=== PATIENT | female | born 1950 | race Caucasian/White ===

== ENCOUNTER 2019-01-19 23:02 | Emergency (ER) | payer MEDICARE, OTHER ==
[2019-01-20] MEDS ORDERED: Sodium Chloride 0.9% 1,000 ML IV ONE (00:02)
[2019-01-20] MEDS ORDERED: Ondansetron 4 MG/2 ML SDV IVPUSH ONE (00:02)
[2019-01-20] MEDS ORDERED: Pantoprazole 40 MG Vial IVPUSH ONE (00:02)
[2019-01-20] MEDS ORDERED: Sodium Chloride 0.9% 2.5 ML Syringe FLUSH PRN (00:02)
[2019-01-20] MEDS ORDERED: Sodium Chloride 0.9% 10 ML Syringe FLUSH PRN (00:02)
--- NOTE | 2019-01-20 00:06 | EDM.PDOC ---
ED HPI GENERAL MEDICAL PROBLEM - General Chief Complaint: Abdominal Pain Stated Complaint: STOMACH PAIN Time Seen by Provider: 01/19/19 23:52 - History of Present Illness INITIAL COMMENTS - FREE TEXT/NARRATIVE: HISTORY AND PHYSICAL: History of present illness: The patient is a 68-year-old female with no significant GI history or abdominal surgical history who presents with upper abdominal/epigastric pain that she says she had an episode of yesterday but it went away and then today it came on suddenly and was very severe earlier and now it has persisted but has improved and she is here for evaluation. The patient says the pain was so bad earlier this evening that it doubled her over but she did not come in at that time. She' s had no fevers chest pain or shortness of breath no vomiting but she did have nausea. She says that earlier today she had 2 soft stools both of which were very dark in color but there was no blood. She's not taking anything for this pain including Pepto-Bismol and she does something that she had a similar episode of this upper abdominal pain a year ago and was checked out in ER with some imaging of which she does not recall and everything was fine. She has no history of food intolerance no cardiac or pulmonary history and no upper respiratory symptoms. She has not had a fever in the last 24 hours and she has had normal urine output. She says the pain is now a numb dull feeling that it is not gone completely but it is significantly better than earlier this evening. She says the pain does not spread to the right or the left or to the lower abdomen. Review of systems: As per history of present illness and below otherwise all systems reviewed and negative. Past medical history: As per history of present illness and as reviewed below otherwise noncontributory. Surgical history: As per history of present illness and as reviewed below otherwise noncontributory. Social history: No reported history of drug or alcohol abuse. Family history: As per history of present illness and as reviewed below otherwise noncontributory. Physical exam: General: Well-developed well-nourished female who is nontoxic and vital signs are noted by me HEENT: Atraumatic, normocephalic, pupils reactive, negative for conjunctival pallor or scleral icterus, mucous membranes moist, throat clear, neck supple, nontender, trachea midline. Lungs: Clear to auscultation, breath sounds equal bilaterally, chest nontender. Heart: S1S2, regular rate and rhythm no overt murmurs Abdomen: Soft, nondistended, minimal tenderness on deep palpation epigastrium without rebound or guarding and bowel sounds are hypoactive. Negative for masses or hepatosplenomegaly. Negative for costovertebral tenderness. Pelvis: Stable nontender. Genitourinary: Deferred. Rectal: There is scant dark stool in the vault which is not black or bloody and it is Hemoccult negative. There are no masses and tone is normal Extremities: Atraumatic, negative for cords or calf pain. Neurovascular unremarkable. Neuro: Awake, alert, oriented. Cranial nerves II through XII unremarkable. Cerebellum unremarkable. Motor and sensory unremarkable throughout. Exam nonfocal. Diagnostics: EKG CBC CMP amylase lipase H. pylori UA with reflex CT scan of the abdomen and pelvis Therapeutics: IV fluids Protonix Zofran SHe is aware of testing results and care plan for home. I've advised her to follow-up in our clinic for further evaluation and testing with possible endoscopy and/or HIDA scan. I've advised her to eat a low-fat diet to avoid caffeinated products and reasons to return to the ED Impression: Upper abdominal/epigastric pain etiology unclear stable Definitive disposition and diagnosis as appropriate pending reevaluation and review of above. abdominal area Pain Score (Numeric/FACES): 6 - Related Data Allergies Allergy/AdvReac Type Severity Reaction Status Date / Time Penicillins Allergy Severe Hives Verified 01/19/19 23:32 acetaminophen Allergy Hives Verified 01/19/19 23:32 [From Darvocet-N] Anesthetics - Amide Type Allergy Hives Verified 01/19/19 23:32 Anesthetics - Corry Type- Allergy Hives Verified 01/19/19 23:32 Parabens aspirin Allergy Bleeding Verified 01/19/19 23:32 latex Allergy Hives Verified 01/19/19 23:32 nut - unspecified Allergy Anaphylactic Verified 01/19/19 23:32 Shock propoxyphene Allergy Hives Verified 01/19/19 23:32 [From Darvocet-N] tree nut [[place]ec[place]] Allergy Airway Verified 01/19/19 23:32 Tightness walnut Allergy Airway Verified 01/19/19 23:32 Tightness Home Meds: Home Meds Metoprolol Succinate 100 mg PO DAILY 06/30/17 [History] Ramipril [Altace] 20 mg PO DAILY 06/30/17 [History] Omeprazole 20 mg PO BID 10/10/17 [History] Betamethasone Dipropionate 1 dose TOP ASDIRECTED PRN 11/04/17 [History] Estrogens, Conjugated [Premarin Vaginal Crm] 0.5 mg VAG DAILY 02/11/18 [History] Isosorbide Mononitrate [Isosorbide Mononitrate ER] 30 mg PO DAILY 02/11/18 [ History] Nitroglycerin 0.4 mg PO ASDIRECTED 02/11/18 [History] Past Medical History HEENT History: Reports: Impaired Vision Cardiovascular History: Reports: Hypertension Respiratory History: Reports: None Gastrointestinal History: Reports: Diverticulosis Genitourinary History: Reports: Renal Calculus, Urinary Incontinence Musculoskeletal History: Reports: Arthritis Neurological History: Reports: CVA Psychiatric History: Reports: None Endocrine/Metabolic History: Reports: Other (See Below) Other Endocrine/Metabolic History: 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 and has it controlled with diet Hematologic History: Reports: None - Infectious Disease History Infectious Disease History: Reports: Chicken Pox, Measles - Past Surgical History HEENT Surgical History: Reports: Other (See Below) Female Surgical History: Reports: Hysterectomy, Kidney stone extraction, Lithotripsy/ESWL, Salpingo-Oophorectomy Neurological Surgical History: Reports: Lumbar Spine Musculoskeletal Surgical History: Reports: Other (See Below) Social & Family History - Family History Family Medical History: Noncontributory - Tobacco Use Smoking Status *Q: Never Smoker Second Hand Smoke Exposure: No - Caffeine Use Caffeine Use: Reports: Coffee - Recreational Drug Use Recreational Drug Use: No - Living Situation & Occupation Living situation: Reports: , with Spouse Occupation: Retired ED ROS GENERAL - Review of Systems Review Of Systems: ROS reveals no pertinent complaints other than HPI. ED EXAM, GENERAL - Physical Exam Exam: See Below (See dictation) Course - Vital Signs Last Recorded V/S: Last Vital Signs Temp 36.1 C 01/19/19 23:32 Pulse 72 01/19/19 23:32 Resp 18 01/19/19 23:32 BP 149/91 H 01/19/19 23:32 Pulse Ox 98 01/19/19 23:32 - Orders/Labs/Meds Orders: Active Orders 24 hr Category Date Time Status EKG Documentation Completion [RC] STAT Care 01/20/19 00:01 Active Sodium Chloride 0.9% [Saline Flush] Med 01/20/19 00:02 Active 10 ml FLUSH ASDIRECTED PRN Sodium Chloride 0.9% [Saline Flush] Med 01/20/19 00:02 Active 2.5 ml FLUSH ASDIRECTED PRN Saline Lock Insert [OM.PC] Stat Oth 01/20/19 00:01 Ordered Medication Orders Sodium Chloride (Saline Flush) 10 ml FLUSH ASDIRECTED PRN PRN Reason: Keep Vein Open Sodium Chloride (Saline Flush) 2.5 ml FLUSH ASDIRECTED PRN PRN Reason: Keep Vein Open Labs: Laboratory Tests 01/20/19 01/20/19 01/20/19 Range/Units 00:05 00:05 00:05 WBC 6.56 (4.0-11.0) K/uL RBC 4.45 (4.30-5.90) M/uL Hgb 14.0 (12.0-16.0) g/dL Hct 40.4 (36.0-46.0) % MCV 90.8 (80.0-98.0) fL MCH 31.5 (27.0-32.0) pg MCHC 34.7 (31.0-37.0) g/dL RDW Std Deviation 43.3 (28.0-62.0) fl RDW Coeff of Malissa 13 (11.0-15.0) % Plt Count 271 (150-400) K/uL MPV 11.30 (7.40-12.00) fL Neut % (Auto) 50.7 (48.0-80.0) % Lymph % (Auto) 36.0 (16.0-40.0) % [place] % (Auto) 11.3 (0.0-15.0) % Eos % (Auto) 1.5 (0.0-7.0) % Baso % (Auto) 0.5 (0.0-1.5) % Neut # (Auto) 3.3 (1.4-5.7) K/uL Lymph # (Auto) 2.4 (0.6-2.4) K/uL [place] # (Auto) 0.7 (0.0-0.8) K/uL Eos # (Auto) 0.1 (0.0-0.7) K/uL Baso # (Auto) 0.0 (0.0-0.1) K/uL Nucleated RBC % 0.0 /100WBC Nucleated RBCs # 0 K/uL Sodium 144 (136-145) mmol/L Potassium 3.8 (3.5-5.1) mmol/L Chloride 108 H (98-107) mmol/L Carbon Dioxide 27.0 (21.0-32.0) mmol/L BUN 14 (7.0-18.0) mg/dL Creatinine 0.9 (0.6-1.0) mg/dL Est Cr Clr Drug Dosing 44.17 mL/min Estimated GFR (MDRD) > 60.0 ml/min Glucose 104 (74-106) mg/dL Calcium 8.6 (8.5-10.1) mg/dL Total Bilirubin 0.4 (0.2-1.0) mg/dL AST 22 (15-37) IU/L ALT 29 (14-63) IU/L Alkaline Phosphatase 118 H (46-116) U/L Total Protein 6.9 (6.4-8.2) g/dL Albumin 3.8 (3.4-5.0) g/dL Globulin 3.1 (2.6-4.0) g/dL Albumin/Globulin Ratio 1.2 (0.9-1.6) Amylase 58 (25-115) U/L Lipase 172 (73-393) U/L Urine Color Urine Appearance Urine pH (5.0-8.0) Ur Specific [place] (1.001-1.035) Urine Protein (NEGATIVE) mg/dL Urine Glucose (UA) (NEGATIVE) mg/dL Urine Ketones (NEGATIVE) mg/dL Urine Occult Blood (NEGATIVE) Urine Nitrite (NEGATIVE) Urine Bilirubin (NEGATIVE) Urine Urobilinogen (<2.0) EU/dL Ur Leukocyte Esterase (NEGATIVE) Urine RBC (0-2/HPF) Urine WBC (0-5/HPF) Ur Epithelial Cells (NONE-FEW) Urine Bacteria (NEGATIVE) H. pylori IgG Antibody NEGATIVE (NEG) 01/20/19 Range/Units 01:15 WBC (4.0-11.0) K/uL RBC (4.30-5.90) M/uL Hgb (12.0-16.0) g/dL Hct (36.0-46.0) % MCV (80.0-98.0) fL MCH (27.0-32.0) pg MCHC (31.0-37.0) g/dL RDW Std Deviation (28.0-62.0) fl RDW Coeff of [place]issa (11.0-15.0) % Plt Count (150-400) K/uL MPV (7.40-12.00) fL Neut % (Auto) (48.0-80.0) % Lymph % (Auto) (16.0-40.0) % [place] % (Auto) (0.0-15.0) % Eos % (Auto) (0.0-7.0) % Baso % (Auto) (0.0-1.5) % Neut # (Auto) (1.4-5.7) K/uL Lymph # (Auto) (0.6-2.4) K/uL [place] # (Auto) (0.0-0.8) K/uL Eos # (Auto) (0.0-0.7) K/uL Baso # (Auto) (0.0-0.1) K/uL Nucleated RBC % /100WBC Nucleated RBCs # K/uL Sodium (136-145) mmol/L Potassium (3.5-5.1) mmol/L Chloride (98-107) mmol/L Carbon Dioxide (21.0-32.0) mmol/L BUN (7.0-18.0) mg/dL Creatinine (0.6-1.0) mg/dL Est Cr Clr Drug Dosing mL/min Estimated GFR (MDRD) ml/min Glucose (74-106) mg/dL Calcium (8.5-10.1) mg/dL Total Bilirubin (0.2-1.0) mg/dL AST (15-37) IU/L ALT (14-63) IU/L Alkaline Phosphatase (46-116) U/L Total Protein (6.4-8.2) g/dL Albumin (3.4-5.0) g/dL Globulin (2.6-4.0) g/dL Albumin/Globulin Ratio (0.9-1.6) Amylase (25-115) U/L Lipase (73-393) U/L Urine Color YELLOW Urine Appearance CLEAR Urine pH 5.5 (5.0-8.0) Ur Specific [place] <= 1.005 (1.001-1.035) Urine Protein NEGATIVE (NEGATIVE) mg/dL Urine Glucose (UA) NEGATIVE (NEGATIVE) mg/dL Urine Ketones NEGATIVE (NEGATIVE) mg/dL Urine Occult Blood TRACE-INTACT H (NEGATIVE) Urine Nitrite NEGATIVE (NEGATIVE) Urine Bilirubin NEGATIVE (NEGATIVE) Urine Urobilinogen 0.2 (<2.0) EU/dL Ur Leukocyte Esterase NEGATIVE (NEGATIVE) Urine RBC 0-2 (0-2/HPF) Urine WBC 0-1 (0-5/HPF) Ur Epithelial Cells FEW (NONE-FEW) Urine Bacteria FEW (NEGATIVE) H. pylori IgG Antibody (NEG) Meds: Medications Generic Name Dose Route Start Last Admin Trade Name Freq PRN Reason Stop Dose Admin Sodium Chloride 10 ml 01/20/19 00:02 Saline Flush FLUSH ASDIRECTED PRN Keep Vein Open Sodium Chloride 2.5 ml 01/20/19 00:02 Saline Flush FLUSH ASDIRECTED PRN Keep Vein Open Discontinued Medications Generic Name Dose Route Start Last Admin Trade Name Freq PRN Reason Stop Dose Admin Sodium Chloride 1,000 mls @ 999 mls/hr 01/20/19 00:02 01/20/19 00:15 Normal Saline IV 01/20/19 01:02 999 mls/hr STAT ONE Administration Iopamidol 100 ml 01/20/19 01:05 01/20/19 01:26 Isovue-370 (76%) IVPUSH 01/20/19 01:06 100 ml ONETIME ONE Administration Ondansetron HCl 4 mg 01/20/19 00:02 01/20/19 00:15 Zofran IVPUSH 01/20/19 00:03 4 mg ONETIME ONE Administration Pantoprazole Sodium 80 mg 01/20/19 00:02 01/20/19 00:15 Protonix Iv IVPUSH 01/20/19 00:03 80 mg .BOLUS ONE Administration Departure - Departure Time of Disposition: 02:20 Disposition: Home, Self-Care 01 Condition: Good Clinical Impression: Abdominal pain Qualifiers: Abdominal location: epigastric Qualified Code(s): R10.13 - Epigastric pain - Discharge Information Referrals: PCP,None [Primary Care Provider] - Forms: ED Department Discharge Additional Instructions: The following information is given to patients seen in the emergency department who are being discharged to home. This information is to outline your options for follow-up care. We provide all patients seen in our emergency department with a follow-up referral. The need for follow-up, as well as the timing and circumstances, are variable depending upon the specifics of your emergency department visit. If you don't have a primary care physician on staff, we will provide you with a referral. We always advise you to contact your personal physician following an emergency department visit to inform them of the circumstance of the visit and for follow-up with them and/or the need for any referrals to a consulting specialist. The emergency department will also refer you to a specialist when appropriate. This referral assures that you have the opportunity for followup care with a specialist. All of these measure are taken in an effort to provide you with optimal care, which includes your followup. Under all circumstances we always encourage you to contact your private physician who remains a resource for coordinating your care. When calling for followup care, please make the office aware that this follow-up is from your recent emergency room visit. If for any reason you are refused follow-up, please contact the [facility] emergency department at and ask to speak to the emergency department charge nurse. [facility] Specialty Care-General Surgery Professional [address] [address] Please contact one of our providers in the clinic to pursue further testing and care of this episode of pain as we discussed. Push hydration and avoid caffeinated products and eat a low-fat diet. Please take medications as prescribed to this evening to reduce acid production in her stomach and return to ER as needed and as discussed - My Orders Last 24 Hours: My Active Orders 01/20/19 00:01 EKG Documentation Completion [RC] STAT Saline Lock Insert [OM.PC] Stat 01/20/19 00:02 Sodium Chloride 0.9% [Saline Flush] 10 ml FLUSH ASDIRECTED PRN Sodium Chloride 0.9% [Saline Flush] 2.5 ml FLUSH ASDIRECTED PRN - Assessment/Plan Last 24 Hours: My Active Orders 01/20/19 00:01 EKG Documentation Completion [RC] STAT Saline Lock Insert [OM.PC] Stat 01/20/19 00:02 Sodium Chloride 0.9% [Saline Flush] 10 ml FLUSH ASDIRECTED PRN Sodium Chloride 0.9% [Saline Flush] 2.5 ml FLUSH ASDIRECTED PRN
[2019-01-20 00:42] LABS: CHLORIDE,CL 108 mmol/L (98-107); SODIUM,NA 144 mmol/L (136-145)
[2019-01-20] MEDS ORDERED: Iopamidol 755 Mg/ML 100 ML Bottle IVPUSH ONE (01:05)
--- NOTE | 2019-01-20 02:01 | CT ---
INDICATION: Abdominal pain TECHNIQUE: CT abdomen and pelvis acquired with 100 cc Isovue 370 intravenous contrast. COMPARISON: None. FINDINGS: Lower chest: Calcified granuloma right lower lobe. Liver: Normal in contour with 2 subcentimeter hyperdensities which are too small for characterization. Gallbladder and bile ducts: Unremarkable. No stones or inflammation. No biliary dilatation. Pancreas: Unremarkable. No mass or inflammation. Spleen: Unremarkable. Normal in size. No masses. Adrenal glands: Unremarkable. No nodules. Kidneys: Symmetric renal enhancement without hydronephrosis. Subcentimeter hypodensities within the kidneys which are too small for characterization although visually likely represent renal cysts. GI tract: The stomach is decompressed and unremarkable. There are no dilated loops of large or small intestine. Appendix is seen and is unremarkable. Note is made of colonic diverticulosis without focal inflammation. Moderate amount of stool within the colon. Vasculature: Atherosclerosis without abdominal aortic aneurysm. Pelvis: Bladder unremarkable. Status posthysterectomy. Bones: Unremarkable for age. IMPRESSION: 1. Colonic diverticulosis without baylee diverticulitis. No acute findings to explain the patient`s abdominal pain. Please note that all CT scans at this facility use dose modulation, iterative reconstruction, and/or weight-based dosing when appropriate to reduce radiation dose to as low as reasonably achievable. Dictated by Tomás Martinez MD @ Jan 20 2019 1:51AM Signed by Dr. Tomás Martinez @ Jan 20 2019 2:00AM
[2019-01-20 03:23] VITALS: BP 128/80
== END 2019-01-20 02:35 | disposition home or self-care (01) ==
LOC: MW.ED 23:02
DX: R10.13 Epigastric pain (principal); I10 Essential (primary) hypertension; Z91.040 Latex allergy status; Z88.0 Allergy status to penicillin; Z88.8 Allergy status to other drugs, medicaments and biological substances
CPT/HCPCS: 36415; 74177; 80053; 81001; 82150; 83690; 85025; 86677; 93005; 96361; 96374; 96375; 99284; C9113; J2405; J7040; Q9967

== ENCOUNTER 2019-03-30 16:17 | Observation (INO) | payer MEDICARE, OTHER ==
[2019-03-30] MEDS ORDERED: Sodium Chloride 0.9% 10 ML Syringe FLUSH PRN (16:22)
[2019-03-30] MEDS ORDERED: Sodium Chloride 0.9% 2.5 ML Syringe FLUSH PRN (16:22)
[2019-03-30] MEDS ORDERED: Sodium Chloride 0.9% 10 ML SDV IV PRN (16:22)
--- NOTE | 2019-03-30 16:42 | CT ---
INDICATION: pain in head and right leg. Patient states history of stroke in 2007 TECHNIQUE: CT Head without i.v. contrast. COMPARISON: None FINDINGS: CSF space: Unremarkable for age. Brain: No evidence of mass, acute infarction or hemorrhage is seen. No mass-effect or midline shift is seen. Mild diffuse cortical atrophy is noted. The brain parenchyma is otherwise normal in appearance with preservation of the sheets-white matter junction. Calvarium: The visualized paranasal sinuses are well aerated. The mastoid air cells are clear. The visualized orbits are grossly unremarkable. The calvarium is unremarkable in appearance with no fractures identified. IMPRESSION: 1. No evidence of acute infarction, intracranial hemorrhage, or mass-effect seen. The findings were discussed with Dr. Gardiner at 4:40 PM. Please note that all CT scans at this facility use dose modulation, iterative reconstruction, and/or weight-based dosing when appropriate to reduce radiation dose to as low as reasonably achievable. Dictated by: Sigifredo Looney MD @ 03/30/2019 16:41:05 (Electronically Signed)
--- NOTE | 2019-03-30 16:48 | EDM.PDOC ---
ED HPI GENERAL MEDICAL PROBLEM - General Chief Complaint: Neuro Symptoms/Deficits Stated Complaint: UNK Time Seen by Provider: 03/30/19 16:19 Source of Information: Reports: Patient History Limitations: Reports: No Limitations - History of Present Illness INITIAL COMMENTS - FREE TEXT/NARRATIVE: History of present illness: []She has had a history of a stroke in 2006 and today approximately 2 hours ago started having numbness in her right cheek. She denies any other Deficits or symptoms. 2 days ago patient had a varicose vein rupture and simultaneous neck pain posteriorly right neck that worsened with movement. She is scared that she may have had another stroke. Review of systems: As per history of present illness and below otherwise all systems reviewed and negative. Past medical history: As per history of present illness and as reviewed below otherwise noncontributory. Surgical history: As per history of present illness and as reviewed below otherwise noncontributory. Social history: No reported history of drug or alcohol abuse. Family history: As per history of present illness and as reviewed below otherwise noncontributory. Physical exam: General: Well developed, well nourished in NAD HEENT: Atraumatic, normocephalic, pupils reactive, negative for conjunctival pallor or scleral icterus, mucous membranes moist, throat clear, neck supple, nontender, trachea midline. Lungs: Clear to auscultation, breath sounds equal bilaterally, chest nontender. Heart: S1S2, regular, negative for clicks, rubs, or JVD. Abdomen: NABS, Soft, nondistended, nontender. Negative for masses or hepatosplenomegaly. Negative for costovertebral tenderness. Pelvis: Stable nontender. Genitourinary: Deferred. Rectal: Deferred. Extremities: Atraumatic, negative for cords or calf pain. Neurovascular unremarkable. Neuro: Awake, alert, oriented. Cranial nerves II through XII unremarkable. Cerebellum unremarkable. Motor and sensory unremarkable throughout. Exam nonfocal. Skin:warm and dry Diagnostics: 14:45-CT head negative, stroke protocol workup ordered, and NIH= 0 Therapeutics: None ED Course: stable Impression: TIA Prescriptions: None Plan: Admit for further workup and observation Definitive disposition and diagnosis as appropriate pending reevaluation and review of above. headache Pain Score (Numeric/FACES): 5 - Related Data Allergies Allergy/AdvReac Type Severity Reaction Status Date / Time Penicillins Allergy Severe Hives Verified 03/30/19 16:45 acetaminophen Allergy Hives Verified 03/30/19 16:45 [From Darvocet-N] Anesthetics - Amide Type Allergy Hives Verified 03/30/19 16:45 Anesthetics - [place]ry Type- Allergy Hives Verified 03/30/19 16:45 Parabens aspirin Allergy Bleeding Verified 03/30/19 16:45 latex Allergy Hives Verified 03/30/19 16:45 nut - unspecified Allergy Anaphylactic Verified 03/30/19 16:45 Shock propoxyphene Allergy Hives Verified 03/30/19 16:45 [From Darvocet-N] tree nut [[place]ec[place]] Allergy Airway Verified 03/30/19 16:45 Tightness walnut Allergy Airway Verified 03/30/19 16:45 Tightness Home Meds: Home Meds Metoprolol Succinate 100 mg PO DAILY 06/30/17 [History] Ramipril [Altace] 20 mg PO DAILY 06/30/17 [History] Estrogens, Conjugated [Premarin Vaginal Crm] 0.5 mg VAG DAILY 02/11/18 [History] Isosorbide Mononitrate [Isosorbide Mononitrate ER] 30 mg PO DAILY 02/11/18 [ History] Nitroglycerin 0.4 mg PO ASDIRECTED 02/11/18 [History] Past Medical History HEENT History: Reports: Impaired Vision Cardiovascular History: Reports: Hypertension Respiratory History: Reports: None Gastrointestinal History: Reports: Diverticulosis Genitourinary History: Reports: Renal Calculus, Urinary Incontinence Musculoskeletal History: Reports: Arthritis Neurological History: Reports: CVA Psychiatric History: Reports: None Endocrine/Metabolic History: Reports: Other (See Below) Other Endocrine/Metabolic History: 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 and has it controlled with diet Hematologic History: Reports: None - Infectious Disease History Infectious Disease History: Reports: Chicken Pox, Measles - Past Surgical History HEENT Surgical History: Reports: Other (See Below) Female Surgical History: Reports: Hysterectomy, Kidney stone extraction, Lithotripsy/ESWL, Salpingo-Oophorectomy Neurological Surgical History: Reports: Lumbar Spine Musculoskeletal Surgical History: Reports: Other (See Below) Social & Family History - Family History Family Medical History: Noncontributory - Caffeine Use Caffeine Use: Reports: Coffee - Living Situation & Occupation Living situation: Reports: , with Spouse Occupation: Retired ED ROS GENERAL - Review of Systems Review Of Systems: ROS reveals no pertinent complaints other than HPI. ED EXAM, NEURO - Physical Exam Exam: See Below (See history of present illness) Course - Vital Signs Last Recorded V/S: Last Vital Signs Temp 96.5 F 03/31/19 04:00 Pulse 71 03/31/19 04:00 Resp 16 03/31/19 04:00 BP 134/77 03/31/19 04:00 Pulse Ox 97 03/31/19 04:00 - Orders/Labs/Meds Orders: Active Orders 24 hr Category Date Time Status Patient Status [ADT] Stat ADT 03/30/19 17:10 Active Assess Neurological Status [RC] Q4H Care 03/30/19 16:22 Active Bedrest [RC] ASDIRECTED Care 03/30/19 16:22 Active Cardiac Monitoring [RC] Q8HPRN Care 03/30/19 18:00 Active NIH Stroke Scale [RC] Q4H Care 03/30/19 16:22 Active Nursing Bedside Swallow Screen [RC] ASDIRECTED Care 03/30/19 16:22 Active Oxygen Therapy [RC] ASDIRECTED Care 03/30/19 16:22 Active Stroke Education, General [RC] Click to Edit Care 03/30/19 16:22 Active Vital Signs [RC] Q4H Care 03/30/19 16:22 Active Sodium Chloride 0.9% [Normal Saline] Med 03/30/19 16:22 Active 10 ml IV ASDIRECTED PRN Sodium Chloride 0.9% [Saline Flush] Med 03/30/19 16:22 Active 10 ml FLUSH ASDIRECTED PRN Sodium Chloride 0.9% [Saline Flush] Med 03/30/19 16:22 Active 2.5 ml FLUSH ASDIRECTED PRN Peripheral IV Insertion Adult [OM.PC] Stat Oth 03/30/19 16:22 Ordered Peripheral IV Insertion Adult [OM.PC] Stat Oth 03/30/19 16:22 Ordered Medication Orders Acetaminophen (Tylenol) 650 mg PO Q4H PRN PRN Reason: Pain (Mild 1-3)/fever Enoxaparin Sodium (Lovenox) 40 mg SUBCUT Q24H MIKE Last Admin: 03/30/19 18:21 Dose: 40 mg Isosorbide Mononitrate (Imdur) 30 mg PO DAILY [facility] Metoprolol Succinate (Toprol Xl) 100 mg PO DAILY [facility] Nitroglycerin (Nitrostat) 0.4 mg SL Q5M PRN PRN Reason: Chest Pain Ondansetron HCl (Zofran Odt) 4 mg PO Q4H PRN PRN Reason: nausea, able to take PO Ramipril (Altace) 20 mg PO DAILY MIKE Sodium Chloride (Saline Flush) 10 ml FLUSH ASDIRECTED PRN PRN Reason: Keep Vein Open Sodium Chloride (Saline Flush) 2.5 ml FLUSH ASDIRECTED PRN PRN Reason: Keep Vein Open Sodium Chloride (Normal Saline) 10 ml IV ASDIRECTED PRN PRN Reason: IV Use Labs: Laboratory Tests 03/30/19 03/30/19 03/30/19 Range/Units 16:45 16:45 16:45 WBC 6.05 (4.0-11.0) K/uL RBC 4.56 (4.30-5.90) M/uL Hgb 14.4 (12.0-16.0) g/dL Hct 42.4 (36.0-46.0) % MCV 93.0 (80.0-98.0) fL MCH 31.6 (27.0-32.0) pg MCHC 34.0 (31.0-37.0) g/dL RDW Std Deviation 45.0 (28.0-62.0) fl RDW Coeff of Malissa 13 (11.0-15.0) % Plt Count 231 (150-400) K/uL MPV 11.00 (7.40-12.00) fL Neut % (Auto) 73.4 (48.0-80.0) % Lymph % (Auto) 18.3 (16.0-40.0) % [place] % (Auto) 7.3 (0.0-15.0) % Eos % (Auto) 0.7 (0.0-7.0) % Baso % (Auto) 0.3 (0.0-1.5) % Neut # (Auto) 4.4 (1.4-5.7) K/uL Lymph # (Auto) 1.1 (0.6-2.4) K/uL [place] # (Auto) 0.4 (0.0-0.8) K/uL Eos # (Auto) 0.0 (0.0-0.7) K/uL Baso # (Auto) 0.0 (0.0-0.1) K/uL Nucleated RBC % 0.0 /100WBC Nucleated RBCs # 0 K/uL INR 0.96 APTT 24.9 (18.6-31.3) SEC Sodium 141 (136-145) mmol/L Potassium 3.8 (3.5-5.1) mmol/L Chloride 105 (98-107) mmol/L Carbon Dioxide 25.6 (21.0-32.0) mmol/L BUN 17 (7.0-18.0) mg/dL Creatinine 0.9 (0.6-1.0) mg/dL Est Cr Clr Drug Dosing 50.18 mL/min Estimated GFR (MDRD) > 60.0 ml/min Glucose 134 H (74-106) mg/dL Calcium 9.1 (8.5-10.1) mg/dL Total Bilirubin 0.6 (0.2-1.0) mg/dL AST 12 L (15-37) IU/L ALT 21 (14-63) IU/L Alkaline Phosphatase 97 (46-116) U/L Troponin I < 0.050 (0.000-0.056) ng/mL Total Protein 6.9 (6.4-8.2) g/dL Albumin 3.8 (3.4-5.0) g/dL Globulin 3.1 (2.6-4.0) g/dL Albumin/Globulin Ratio 1.2 (0.9-1.6) TSH 3rd Generation 1.51 (0.36-3.74) uIU/mL Meds: Medications Generic Name Dose Route Start Last Admin Trade Name Freq PRN Reason Stop Dose Admin Acetaminophen 650 mg 03/30/19 17:46 Tylenol PO Q4H PRN Pain (Mild 1-3)/fever Enoxaparin Sodium 40 mg 03/30/19 18:00 03/30/19 18:21 Lovenox SUBCUT 40 mg Q24H MIKE Administration Isosorbide Mononitrate 30 mg 03/31/19 09:00 Imdur PO DAILY [facility] Metoprolol Succinate 100 mg 03/31/19 09:00 Toprol Xl PO DAILY MIKE Nitroglycerin 0.4 mg 03/30/19 17:54 Nitrostat SL Q5M PRN Chest Pain Ondansetron HCl 4 mg 03/30/19 17:46 Zofran Odt PO Q4H PRN nausea, able to take PO Ramipril 20 mg 03/31/19 09:00 Altace PO DAILY MIKE Sodium Chloride 10 ml 03/30/19 16:22 Saline Flush FLUSH ASDIRECTED PRN Keep Vein Open Sodium Chloride 2.5 ml 03/30/19 16:22 Saline Flush FLUSH ASDIRECTED PRN Keep Vein Open Sodium Chloride 10 ml 03/30/19 16:22 Normal Saline IV ASDIRECTED PRN IV Use Discontinued Medications Generic Name Dose Route Start Last Admin Trade Name Freq PRN Reason Stop Dose Admin Iopamidol 100 ml 03/30/19 19:26 03/30/19 19:26 Isovue Multipack-370 (76%) IVPUSH 03/30/19 19:27 100 ml ONETIME STA Administration Departure - Departure Time of Disposition: 17:50 Disposition: Admitted As Inpatient 68 Condition: Good Clinical Impression: TIA (transient ischemic attack) - Discharge Information *PRESCRIPTION DRUG MONITORING PROGRAM REVIEWED*: No *COPY OF PRESCRIPTION DRUG MONITORING REPORT IN PATIENT BELKYS: No - My Orders Last 24 Hours: My Active Orders 03/30/19 16:22 Assess Neurological Status [RC] Q4H Bedrest [RC] ASDIRECTED NIH Stroke Scale [RC] Q4H Nursing Bedside Swallow Screen [RC] ASDIRECTED Oxygen Therapy [RC] ASDIRECTED Stroke Education, General [RC] Click to Edit Vital Signs [RC] Q4H Sodium Chloride 0.9% [Normal Saline] 10 ml IV ASDIRECTED PRN Sodium Chloride 0.9% [Saline Flush] 10 ml FLUSH ASDIRECTED PRN Sodium Chloride 0.9% [Saline Flush] 2.5 ml FLUSH ASDIRECTED PRN Peripheral IV Insertion Adult [OM.PC] Stat Peripheral IV Insertion Adult [OM.PC] Stat 03/30/19 17:10 Patient Status [ADT] Stat 03/30/19 18:00 Cardiac Monitoring [RC] Q8HPRN - Assessment/Plan Last 24 Hours: My Active Orders 03/30/19 16:22 Assess Neurological Status [RC] Q4H Bedrest [RC] ASDIRECTED NIH Stroke Scale [RC] Q4H Nursing Bedside Swallow Screen [RC] ASDIRECTED Oxygen Therapy [RC] ASDIRECTED Stroke Education, General [RC] Click to Edit Vital Signs [RC] Q4H Sodium Chloride 0.9% [Normal Saline] 10 ml IV ASDIRECTED PRN Sodium Chloride 0.9% [Saline Flush] 10 ml FLUSH ASDIRECTED PRN Sodium Chloride 0.9% [Saline Flush] 2.5 ml FLUSH ASDIRECTED PRN Peripheral IV Insertion Adult [OM.PC] Stat Peripheral IV Insertion Adult [OM.PC] Stat 03/30/19 17:10 Patient Status [ADT] Stat 03/30/19 18:00 Cardiac Monitoring [RC] Q8HPRN
[2019-03-30 17:31] LABS: CHLORIDE,CL 105 mmol/L (98-107); SODIUM,NA 141 mmol/L (136-145)
[2019-03-30] MEDS ORDERED: Acetaminophen 325 MG Tab PO PRN (17:46)
[2019-03-30] MEDS ORDERED: Ondansetron 4 MG Tab.DIS PO PRN (17:46)
[2019-03-30] MEDS ORDERED: Nitroglycerin 0.4 MG Tab.SL SL PRN (17:54)
[2019-03-30] MEDS ORDERED: Enoxaparin 40 MG/0.4 ML Syringe SUBCUT SCH (18:00)
--- NOTE | 2019-03-30 18:04 | PCM.HP ---
<Jorden Smith - Last Filed: 03/30/19 17:58> H&P History of Present Illness - General Date of Service: 03/30/19 Admit Problem/Dx: Admission Diagnosis/Problem Admission Diagnosis/Problem TIA, Transient ischemic attack - History of Present Illness Initial Comments - Free Text/Narative: 69 y/o female with previous history of stroke and TIA. Last stroke was in 2006 and last TIA was few years ago. States that for the past 2-3 days she has been having a headache in occipital, cervical region. No radiation. Tender when palpated. Massaging it helps. Has been taking tylenol with minimal improvement. She was concern today since she started feeling some right maxillary numbness along with the occipital headache which she described as sharp feeling. She notes that she has chronic sinusitis and doesn't know if it was her sinus pressure causing the symptoms, never the less, she contacted her PCP's office who advised her to go to the ER due to her symptoms and past history of strokes. In the ER, she was in no acute distress. Still endorsed tenderness in the cervical neck region when turning neck to the right. Endorsed some sinus pressure. No extremity numbness or loss of strength. Denied any slurring of her speech or difficulty walking. CT head was negative for any intracranial hemorrhage or acute stroke findings. Denies any change in vision, cough, chest pain, dyspnea, abdominal pain, dysuria , diarrhea, blood in stool. No extremity swelling. headache Pain Score (Numeric/FACES): 5 - Related Data Allergies/Adverse Reactions: Allergies Allergy/AdvReac Type Severity Reaction Status Date / Time Penicillins Allergy Severe Hives Verified 03/30/19 16:45 acetaminophen Allergy Hives Verified 03/30/19 16:45 [From Darvocet-N] Anesthetics - Amide Type Allergy Hives Verified 03/30/19 16:45 Anesthetics - Corry Type- Allergy Hives Verified 03/30/19 16:45 Parabens aspirin Allergy Bleeding Verified 03/30/19 16:45 latex Allergy Hives Verified 03/30/19 16:45 nut - unspecified Allergy Anaphylactic Verified 03/30/19 16:45 Shock propoxyphene Allergy Hives Verified 03/30/19 16:45 [From Darvocet-N] tree nut [[place]ecans] Allergy Airway Verified 03/30/19 16:45 Tightness walnut Allergy Airway Verified 03/30/19 16:45 Tightness Home Medications: Home Meds Metoprolol Succinate 100 mg PO DAILY 06/30/17 [History] Ramipril [Altace] 20 mg PO DAILY 06/30/17 [History] Estrogens, Conjugated [Premarin Vaginal Crm] 0.5 mg VAG DAILY 02/11/18 [History] Isosorbide Mononitrate [Isosorbide Mononitrate ER] 30 mg PO DAILY 02/11/18 [ History] Nitroglycerin 0.4 mg PO ASDIRECTED 02/11/18 [History] Past Medical History HEENT History: Reports: Impaired Vision Cardiovascular History: Reports: Hypertension Respiratory History: Reports: None Gastrointestinal History: Reports: Diverticulosis Genitourinary History: Reports: Renal Calculus, Urinary Incontinence ORTHOPEDIC NURSE PRACTITIONER History: Reports: None Musculoskeletal History: Reports: Arthritis Neurological History: Reports: CVA Psychiatric History: Reports: None Endocrine/Metabolic History: Reports: Other (See Below) Other Endocrine/Metabolic History: 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 and has it controlled with diet Hematologic History: Reports: None Immunologic History: Reports: None Oncologic (Cancer) History: Reports: None Dermatologic History: Reports: None - Infectious Disease History Infectious Disease History: Reports: Chicken Pox, Measles - Past Surgical History HEENT Surgical History: Reports: Other (See Below) Female Surgical History: Reports: Hysterectomy, Kidney stone extraction, Lithotripsy/ESWL, Salpingo-Oophorectomy Neurological Surgical History: Reports: Lumbar Spine Musculoskeletal Surgical History: Reports: Other (See Below) Social & Family History - Family History Family Medical History: Noncontributory - Tobacco Use Smoking Status *Q: Former Smoker Used Tobacco, but Quit: Yes Month/Year Tobacco Last Used: 43 years - Caffeine Use Caffeine Use: Reports: Coffee - Recreational Drug Use Recreational Drug Use: No - Living Situation & Occupation Living situation: Reports: , with Spouse Occupation: Retired H&P Review of Systems - Review of Systems: Review Of Systems: ROS reveals no pertinent complaints other than HPI. Exam - Exam Exam: See Below - Vital Signs Vital Signs: Last Vital Signs Temp 36.6 C 03/30/19 16:25 Pulse 65 03/30/19 17:23 Resp 18 03/30/19 17:23 BP 153/93 H 03/30/19 17:23 Pulse Ox 98 03/30/19 17:23 Weight: 63.503 kg - Exam General: Alert, Oriented, Cooperative HEENT: Conjunctiva Clear, Mucosa Moist & [place] Neck: Supple, Full Range of Motion, Other (point tenderness on right cervical, occipital area.) Lungs: Clear to Auscultation, Normal Respiratory Effort. No: Crackles, Wheezing Cardiovascular: Regular Rate, Regular Rhythm GI/Abdominal Exam: Normal Bowel Sounds, Soft, Non-Tender, No Organomegaly, No Distention Back Exam: Normal Inspection, Full Range of Motion Extremities: Normal Inspection, No Pedal Edema Skin: Warm, Dry Neurological: Cranial Nerves Intact, Strength Equal Bilateral, Normal Gait, Normal Speech Neuro Extensive - Mental Status: Alert, Oriented x3 - Patient Data Lab Results Last 24 hrs: Laboratory Results - last 24 hr 03/30/19 03/30/19 03/30/19 Range/Units 16:45 16:45 16:45 WBC 6.05 (4.0-11.0) K/uL RBC 4.56 (4.30-5.90) M/uL Hgb 14.4 (12.0-16.0) g/dL Hct 42.4 (36.0-46.0) % MCV 93.0 (80.0-98.0) fL MCH 31.6 (27.0-32.0) pg MCHC 34.0 (31.0-37.0) g/dL RDW Std Deviation 45.0 (28.0-62.0) fl RDW Coeff of Malissa 13 (11.0-15.0) % Plt Count 231 (150-400) K/uL MPV 11.00 (7.40-12.00) fL Neut % (Auto) 73.4 (48.0-80.0) % Lymph % (Auto) 18.3 (16.0-40.0) % [place] % (Auto) 7.3 (0.0-15.0) % Eos % (Auto) 0.7 (0.0-7.0) % Baso % (Auto) 0.3 (0.0-1.5) % Neut # (Auto) 4.4 (1.4-5.7) K/uL Lymph # (Auto) 1.1 (0.6-2.4) K/uL [place] # (Auto) 0.4 (0.0-0.8) K/uL Eos # (Auto) 0.0 (0.0-0.7) K/uL Baso # (Auto) 0.0 (0.0-0.1) K/uL Nucleated RBC % 0.0 /100WBC Nucleated RBCs # 0 K/uL INR 0.96 APTT 24.9 (18.6-31.3) SEC Sodium 141 (136-145) mmol/L Potassium 3.8 (3.5-5.1) mmol/L Chloride 105 (98-107) mmol/L Carbon Dioxide 25.6 (21.0-32.0) mmol/L BUN 17 (7.0-18.0) mg/dL Creatinine 0.9 (0.6-1.0) mg/dL Est Cr Clr Drug Dosing 50.18 mL/min Estimated GFR (MDRD) > 60.0 ml/min Glucose 134 H (74-106) mg/dL Calcium 9.1 (8.5-10.1) mg/dL Total Bilirubin 0.6 (0.2-1.0) mg/dL AST 12 L (15-37) IU/L ALT 21 (14-63) IU/L Alkaline Phosphatase 97 (46-116) U/L Troponin I < 0.050 (0.000-0.056) ng/mL Total Protein 6.9 (6.4-8.2) g/dL Albumin 3.8 (3.4-5.0) g/dL Globulin 3.1 (2.6-4.0) g/dL Albumin/Globulin Ratio 1.2 (0.9-1.6) TSH 3rd Generation 1.51 (0.36-3.74) uIU/mL Result Diagrams: 03/30/19 16:45 03/30/19 16:45 Problem List Initiated/Reviewed/Updated: Yes Orders Last 24hrs: Active Orders 24 hr Category Date Time Status Patient Status [ADT] Stat ADT 03/30/19 17:10 Active Assess Neurological Status [RC] ASDIRECTED Care 03/30/19 16:22 Active Bedrest Bathroom Privileges [RC] ASDIRECTED Care 03/30/19 17:46 Active Bedrest [RC] ASDIRECTED Care 03/30/19 16:22 Active Cardiac Monitoring [RC] . DIRECTED Care 03/30/19 16:22 Active EKG Documentation Completion [RC] STAT Care 03/30/19 16:22 Active Height and Weight [RC] UPON Care 03/30/19 16:22 Active Initiate Acute Stroke Protocol [RC] STAT Care 03/30/19 16:22 Active NIH Stroke Scale [RC] ASDIRECTED Care 03/30/19 16:22 Active Nursing Bedside Swallow Screen [RC] ASDIRECTED Care 03/30/19 16:22 Active Oxygen Therapy [RC] ASDIRECTED Care 03/30/19 16:22 Active Oxygen Therapy [RC] PRN Care 03/30/19 17:46 Active Stroke Education, General [RC] Click to Edit Care 03/30/19 16:22 Active VTE/DVT Education [RC] PER UNIT ROUTINE Care 03/30/19 17:46 Active Vital Signs [RC] Q15M Care 03/30/19 16:22 Active Vital Signs [RC] Q4H Care 03/30/19 17:46 Active Regular Diet [DIET] Diet 03/30/19 Breakfast Active Ang Head [CT] Routine Exams 03/30/19 17:49 Ordered Ang Neck [CT] Routine Exams 03/30/19 17:49 Ordered BASIC METABOLIC PANEL,BMP [CHEM] AM Lab 03/31/19 05:11 Ordered GLYCOSYLATED HEMOGLOBIN,HGBA1C [CHEM] AM Lab 03/31/19 05:11 Ordered LIPID PANEL [CHEM] AM Lab 03/31/19 05:11 Ordered Acetaminophen [Tylenol] Med 03/30/19 17:46 Active 650 mg PO Q4H PRN Enoxaparin [Lovenox] Med 03/30/19 18:00 Active 40 mg SUBCUT Q24H Isosorbide Mononitrate [Imdur] Med 03/31/19 09:00 Active 30 mg PO DAILY Metoprolol Succinate [Toprol XL] Med 03/31/19 09:00 Active 100 mg PO DAILY Nitroglycerin [Nitrostat] Med 03/30/19 17:54 Active 0.4 mg SL Q5M PRN Ondansetron [Zofran ODT] Med 03/30/19 17:46 Active 4 mg PO Q4H PRN Ramipril [Altace] Med 03/31/19 09:00 Active 20 mg PO DAILY Sodium Chloride 0.9% [Normal Saline] Med 03/30/19 16:22 Active 10 ml IV ASDIRECTED PRN Sodium Chloride 0.9% [Saline Flush] Med 03/30/19 16:22 Active 10 ml FLUSH ASDIRECTED PRN Sodium Chloride 0.9% [Saline Flush] Med 03/30/19 16:22 Active 2.5 ml FLUSH ASDIRECTED PRN Peripheral IV Insertion Adult [OM.PC] Stat Ot 03/30/19 16:22 Ordered Peripheral IV Insertion Adult [OM.PC] Stat Ot 03/30/19 16:22 Ordered Resuscitation Status Routine Resus Stat 03/30/19 17:46 Ordered Medication Orders Acetaminophen (Tylenol) 650 mg PO Q4H PRN PRN Reason: Pain (Mild 1-3)/fever Enoxaparin Sodium (Lovenox) 40 mg SUBCUT Q24H MIKE Isosorbide Mononitrate (Imdur) 30 mg PO DAILY MIKE Metoprolol Succinate (Toprol Xl) 100 mg PO DAILY MIKE Nitroglycerin (Nitrostat) 0.4 mg SL Q5M PRN PRN Reason: Chest Pain Ondansetron HCl (Zofran Odt) 4 mg PO Q4H PRN PRN Reason: nausea, able to take PO Ramipril (Altace) 20 mg PO DAILY MIKE Sodium Chloride (Saline Flush) 10 ml FLUSH ASDIRECTED PRN PRN Reason: Keep Vein Open Sodium Chloride (Saline Flush) 2.5 ml FLUSH ASDIRECTED PRN PRN Reason: Keep Vein Open Sodium Chloride (Normal Saline) 10 ml IV ASDIRECTED PRN PRN Reason: IV Use Assessment/Plan Comment:: A: 1. Headache likely tension headache 2. Sinus pressure 3. PMH CVA, HTN P: 1. Headache, likely 2/2 tension headache, however, due to patient's past stroke history I will order CT angio head and neck to further assess for stroke. Avoiding aspirin since patient is allergic. Will add tylenol for headache and see if that helps. In addition, will encourage oral hydration. Will check HgA1c , lipid panel. 2. PMH CVA, HTN: will continue home medications for now. Dispo: likely dc tomorrow. <Sumit Wilkinson M - Last Filed: 03/31/19 12:14> H&P History of Present Illness - General Admit Problem/Dx: Admission Diagnosis/Problem Admission Diagnosis/Problem TIA, Transient ischemic attack I have seen and examined to patient independently of medical records custodian, Jorden Brody MD. I have discussed the case for care of this patient with him. I have reviewed and approve of the plan of care as outlined by medical records custodian. Please see orders. Exam - Vital Signs Vital Signs: Last Vital Signs Temp 36.1 C 03/31/19 08:00 Pulse 88 03/31/19 08:56 Resp 18 03/31/19 08:00 BP 150/88 H 03/31/19 08:59 Pulse Ox 100 03/31/19 08:00 - Patient Data Lab Results Last 24 hrs: Laboratory Results - last 24 hr 03/30/19 03/30/19 03/30/19 Range/Units 16:45 16:45 16:45 WBC 6.05 (4.0-11.0) K/uL RBC 4.56 (4.30-5.90) M/uL Hgb 14.4 (12.0-16.0) g/dL Hct 42.4 (36.0-46.0) % MCV 93.0 (80.0-98.0) fL MCH 31.6 (27.0-32.0) pg MCHC 34.0 (31.0-37.0) g/dL RDW Std Deviation 45.0 (28.0-62.0) fl RDW Coeff of Malissa 13 (11.0-15.0) % Plt Count 231 (150-400) K/uL MPV 11.00 (7.40-12.00) fL Neut % (Auto) 73.4 (48.0-80.0) % Lymph % (Auto) 18.3 (16.0-40.0) % [place] % (Auto) 7.3 (0.0-15.0) % Eos % (Auto) 0.7 (0.0-7.0) % Baso % (Auto) 0.3 (0.0-1.5) % Neut # (Auto) 4.4 (1.4-5.7) K/uL Lymph # (Auto) 1.1 (0.6-2.4) K/uL [place] # (Auto) 0.4 (0.0-0.8) K/uL Eos # (Auto) 0.0 (0.0-0.7) K/uL Baso # (Auto) 0.0 (0.0-0.1) K/uL Nucleated RBC % 0.0 /100WBC Nucleated RBCs # 0 K/uL INR 0.96 APTT 24.9 (18.6-31.3) SEC Sodium 141 (136-145) mmol/L Potassium 3.8 (3.5-5.1) mmol/L Chloride 105 (98-107) mmol/L Carbon Dioxide 25.6 (21.0-32.0) mmol/L BUN 17 (7.0-18.0) mg/dL Creatinine 0.9 (0.6-1.0) mg/dL Est Cr Clr Drug Dosing 50.18 mL/min Estimated GFR (MDRD) > 60.0 ml/min Glucose 134 H (74-106) mg/dL Hemoglobin A1c (4.5-6.2) % Calcium 9.1 (8.5-10.1) mg/dL Total Bilirubin 0.6 (0.2-1.0) mg/dL AST 12 L (15-37) IU/L ALT 21 (14-63) IU/L Alkaline Phosphatase 97 (46-116) U/L Troponin I < 0.050 (0.000-0.056) ng/mL Total Protein 6.9 (6.4-8.2) g/dL Albumin 3.8 (3.4-5.0) g/dL Globulin 3.1 (2.6-4.0) g/dL Albumin/Globulin Ratio 1.2 (0.9-1.6) Triglycerides (0-200) mg/dL Cholesterol (50-200) mg/dL LDL Cholesterol, Calc (60-180) mg/dL VLDL Cholesterol (5-55) mg/dL HDL Cholesterol (40-60) mg/dL Cholesterol/HDL Ratio (3.3-6.0) TSH 3rd Generation 1.51 (0.36-3.74) uIU/mL 03/31/19 03/31/19 Range/Units 06:00 06:00 WBC (4.0-11.0) K/uL RBC (4.30-5.90) M/uL Hgb (12.0-16.0) g/dL Hct (36.0-46.0) % MCV (80.0-98.0) fL MCH (27.0-32.0) pg MCHC (31.0-37.0) g/dL RDW Std Deviation (28.0-62.0) fl RDW Coeff of Malissa (11.0-15.0) % Plt Count (150-400) K/uL MPV (7.40-12.00) fL Neut % (Auto) (48.0-80.0) % Lymph % (Auto) (16.0-40.0) % [place] % (Auto) (0.0-15.0) % Eos % (Auto) (0.0-7.0) % Baso % (Auto) (0.0-1.5) % Neut # (Auto) (1.4-5.7) K/uL Lymph # (Auto) (0.6-2.4) K/uL [place] # (Auto) (0.0-0.8) K/uL Eos # (Auto) (0.0-0.7) K/uL Baso # (Auto) (0.0-0.1) K/uL Nucleated RBC % /100WBC Nucleated RBCs # K/uL INR APTT (18.6-31.3) SEC Sodium 141 (136-145) mmol/L Potassium 3.3 L (3.5-5.1) mmol/L Chloride 106 (98-107) mmol/L Carbon Dioxide 28.9 (21.0-32.0) mmol/L BUN 12 (7.0-18.0) mg/dL Creatinine 0.9 (0.6-1.0) mg/dL Est Cr Clr Drug Dosing 50.18 mL/min Estimated GFR (MDRD) > 60.0 ml/min Glucose 110 H (74-106) mg/dL Hemoglobin A1c 5.5 (4.5-6.2) % Calcium 9.0 (8.5-10.1) mg/dL Total Bilirubin (0.2-1.0) mg/dL AST (15-37) IU/L ALT (14-63) IU/L Alkaline Phosphatase (46-116) U/L Troponin I (0.000-0.056) ng/mL Total Protein (6.4-8.2) g/dL Albumin (3.4-5.0) g/dL Globulin (2.6-4.0) g/dL Albumin/Globulin Ratio (0.9-1.6) Triglycerides 138 (0-200) mg/dL Cholesterol 217 H (50-200) mg/dL LDL Cholesterol, Calc 139 (60-180) mg/dL VLDL Cholesterol 27 (5-55) mg/dL HDL Cholesterol 50 (40-60) mg/dL Cholesterol/HDL Ratio 4.3 (3.3-6.0) TSH 3rd Generation (0.36-3.74) uIU/mL Result Diagrams: 03/30/19 16:45 03/31/19 06:00 - Problem List (1) TIA (transient ischemic attack) SNOMED Code(s): 093105454 ICD Code: G45.9 - TRANSIENT CEREBRAL ISCHEMIC ATTACK, UNSPECIFIED Status: Ruled-out Priority: High Current Visit: Yes (2) Anxiety SNOMED Code(s): 06150472 ICD Code: F41.9 - ANXIETY DISORDER, UNSPECIFIED Status: Acute Priority: High Current Visit: Yes (3) Hypertension SNOMED Code(s): 83862557 ICD Code: I10 - ESSENTIAL (PRIMARY) HYPERTENSION Status: Acute Current Visit: No Qualifiers: Hypertension type: essential hypertension Qualified Code(s): I10 - Essential (primary) hypertension Orders Last 24hrs: Active Orders 24 hr Category Date Time Status Patient Status [ADT] Stat ADT 03/30/19 17:10 Active Assess Neurological Status [RC] Q4H Care 03/30/19 16:22 Active Bedrest Bathroom Privileges [RC] ASDIRECTED Care 03/30/19 17:46 Active Bedrest [RC] ASDIRECTED Care 03/30/19 16:22 Active Cardiac Monitoring [RC] Q8HPRN Care 03/30/19 18:00 Active Cooling Warming Measures [RC] .PRN Care 03/30/19 18:12 Active NIH Stroke Scale [RC] Q4H Care 03/30/19 16:22 Active Nursing Bedside Swallow Screen [RC] ASDIRECTED Care 03/30/19 16:22 Active Oxygen Therapy [RC] ASDIRECTED Care 03/30/19 16:22 Active Oxygen Therapy [RC] PRN Care 03/30/19 17:46 Active Ready for Discharge [RC] PER UNIT ROUTINE Care 03/31/19 12:01 Active Stroke Education, General [RC] Click to Edit Care 03/30/19 16:22 Active Telemetry Monitoring [Cardiac Monitoring] [RC] . Care 03/30/19 17:30 Active DIRECTED VTE/DVT Education [RC] PER UNIT ROUTINE Care 03/30/19 17:46 Active Vital Signs [RC] Q4H Care 03/30/19 16:22 Active Vital Signs [RC] Q4H Care 03/30/19 17:46 Active Consult to Physical Therapy [PT Evaluation and Cons 03/30/19 18:10 Active Treatment] [CONS] Routine Acetaminophen [Tylenol] Med 03/30/19 17:46 Active 650 mg PO Q4H PRN Enoxaparin [Lovenox] Med 03/30/19 18:00 Active 40 mg SUBCUT Q24H Isosorbide Mononitrate [Imdur] Med 03/31/19 09:00 Active 30 mg PO DAILY Metoprolol Succinate [Toprol XL] Med 03/31/19 09:00 Active 100 mg PO BID Nitroglycerin [Nitrostat] Med 03/30/19 17:54 Active 0.4 mg SL Q5M PRN Ondansetron [Zofran ODT] Med 03/30/19 17:46 Active 4 mg PO Q4H PRN Ramipril [Altace] Med 03/31/19 09:00 Active 10 mg PO BID Sodium Chloride 0.9% [Normal Saline] Med 03/30/19 16:22 Active 10 ml IV ASDIRECTED PRN Sodium Chloride 0.9% [Saline Flush] Med 03/30/19 16:22 Active 10 ml FLUSH ASDIRECTED PRN Sodium Chloride 0.9% [Saline Flush] Med 03/30/19 16:22 Active 2.5 ml FLUSH ASDIRECTED PRN Heat Therapy [OM.PC] Routine Oth 03/30/19 18:12 Ordered Peripheral IV Insertion Adult [OM.PC] Stat Oth 03/30/19 16:22 Ordered Peripheral IV Insertion Adult [OM.PC] Stat Oth 03/30/19 16:22 Ordered Resuscitation Status Routine Resus Stat 03/30/19 17:46 Ordered Medication Orders Acetaminophen (Tylenol) 650 mg PO Q4H PRN PRN Reason: Pain (Mild 1-3)/fever Enoxaparin Sodium (Lovenox) 40 mg SUBCUT Q24H [facility] Last Admin: 03/30/19 18:21 Dose: 40 mg Isosorbide Mononitrate (Imdur) 30 mg PO DAILY [facility] Last Admin: 03/31/19 08:59 Dose: 30 mg Metoprolol Succinate (Toprol Xl) 100 mg PO BID [facility] Last Admin: 03/31/19 08:56 Dose: 100 mg Nitroglycerin (Nitrostat) 0.4 mg SL Q5M PRN PRN Reason: Chest Pain Ondansetron HCl (Zofran Odt) 4 mg PO Q4H PRN PRN Reason: nausea, able to take PO Ramipril (Altace) 10 mg PO BID [facility] Last Admin: 03/31/19 08:59 Dose: 10 mg Sodium Chloride (Saline Flush) 10 ml FLUSH ASDIRECTED PRN PRN Reason: Keep Vein Open Sodium Chloride (Saline Flush) 2.5 ml FLUSH ASDIRECTED PRN PRN Reason: Keep Vein Open Sodium Chloride (Normal Saline) 10 ml IV ASDIRECTED PRN PRN Reason: IV Use
[2019-03-30] MEDS ORDERED: Iopamidol 755 MG/ML 500 ML Multipack Bottle IVPUSH STA (19:26)
--- NOTE | 2019-03-30 19:50 | CT ---
INDICATION: Hand numbness, headache. TECHNIQUE: High resolution axial CT images acquired through the head and neck following rapid intravenous administration of iodinated contrast. Multiplanar MIPS of cranial and cervical vasculature performed. FINDINGS: CTA head: There is normal filling of the intracranial vasculature; i.e. there is no large vessel occlusion or significant intracranial stenosis. There is no cerebral aneurysm or evidence for vascular malformation. The underlying brain parenchyma is unremarkable at CTA. CTA neck: There is no carotid or vertebral artery stenosis or dissection. An incidental hypodense nodule is noted in the right thyroid. The soft tissues of the neck are otherwise within normal limits. The cervical spine is in normal alignment. The lung apices are clear. IMPRESSION: Unremarkable CTA head and neck. Rafael William MD Neurointerventional [employer] [facility] Please note that all CT scans at this facility use dose modulation, iterative reconstruction, and/or weight-based dosing when appropriate to reduce radiation dose to as low as reasonably achievable. Dictated by Rafael William MD @ Mar 31 2019 9:06AM Signed by Dr. Rafael William @ Mar 31 2019 9:07AM
--- NOTE | 2019-03-30 19:50 | CT ---
INDICATION: Hand numbness, headache. TECHNIQUE: High resolution axial CT images acquired through the head and neck following rapid intravenous administration of iodinated contrast. Multiplanar MIPS of cranial and cervical vasculature performed. FINDINGS: CTA head: There is normal filling of the intracranial vasculature; i.e. there is no large vessel occlusion or significant intracranial stenosis. There is no cerebral aneurysm or evidence for vascular malformation. The underlying brain parenchyma is unremarkable at CTA. CTA neck: There is no carotid or vertebral artery stenosis or dissection. An incidental hypodense nodule is noted in the right thyroid. The soft tissues of the neck are otherwise within normal limits. The cervical spine is in normal alignment. The lung apices are clear. IMPRESSION: Unremarkable CTA head and neck. Rafael William MD Neurointerventional Radiologist [facility] Please note that all CT scans at this facility use dose modulation, iterative reconstruction, and/or weight-based dosing when appropriate to reduce radiation dose to as low as reasonably achievable. Dictated by Rafael William MD @ Mar 31 2019 9:00AM Signed by Dr. Rafael William @ Mar 31 2019 9:06AM
[2019-03-31 06:23] LABS: HEMOGLOBIN A1C 5.5 % (4.5-6.2)
[2019-03-31 06:32] LABS: CHLORIDE,CL 106 mmol/L (98-107); SODIUM,NA 141 mmol/L (136-145)
[2019-03-31] MEDS ORDERED: Metoprolol Succinate 100 MG Tab.ER PO SCH (09:00)
[2019-03-31] MEDS ORDERED: Metoprolol Succinate 50 MG Tab.ER PO SCH (09:00)
[2019-03-31] MEDS ORDERED: Isosorbide Mononitrate 30 MG Tab.ER PO SCH (09:00)
--- NOTE | 2019-03-31 11:03 | PCM.DCSUM1 ---
Discharge Summary - Hospital Course HPI Initial Comments: The patient was admitted out of concern for possible TIA symptoms. Diagnosis: Stroke: No - Discharge Data Discharge Date: 03/31/19 Discharge Disposition: Home, Self-Care 01 Condition: Good - Patient Summary/Data Consults: Consultations 03/30/19 18:10 Consult to Physical Therapy [PT Evaluation and Treatment] [CONS] Routine Hospital Course: The patient is a 69-year-old lady who had presented to the emergency department and was admitted secondary to having a two-hour incident of numbness in her right cheek. Patient did not have any other signs or deficits. The patient reports that she had a "popping type sensation" in her neck and she does have a prior history of stroke from 2006. The patient was admitted predominantly for observation and a CT angiogram of her head and neck was also ordered. 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 During the short course of hospitalization the patient had continued to improve. She had no recurrence of numbness or tingling. CT angiogram of her head and neck was obtained on March 30, 2019 which showed no carotid or vertebral artery stenosis or dissection. She also had normal filling of the intracranial vasculature. This was interpreted as unremarkable CTA of the head and neck. The patient had been tolerating her diet. She been recommended to follow-up with her primary care physician. The patient is also have activity as tolerated. She has been hemodynamically stable and she has been discharged from acute hospitalization with the recommendations listed above. - Patient Instructions Diet: Heart Healthy Diet Activity: As Tolerated - Discharge Plan *PRESCRIPTION DRUG MONITORING PROGRAM REVIEWED*: No *COPY OF PRESCRIPTION DRUG MONITORING REPORT IN PATIENT BELKYS: No Home Medications: Home Meds Metoprolol Succinate 100 mg PO DAILY 06/30/17 [History] Ramipril [Altace] 20 mg PO DAILY 06/30/17 [History] Estrogens, Conjugated [Premarin Vaginal Crm] 0.5 mg VAG DAILY 02/11/18 [History] Isosorbide Mononitrate [Isosorbide Mononitrate ER] 30 mg PO DAILY 02/11/18 [ History] Nitroglycerin 0.4 mg PO ASDIRECTED 02/11/18 [History] Oxygen Therapy Mode: Room Air Patient Handouts: Stroke Prevention, [id number], Transient Ischemic Attack, [id number] Referrals: Jory Montilla MD [Physician] - - Discharge Summary/Plan Comment DC Time >30 min.: Yes - General Info Date of Service: 03/31/19 Admission Dx/Problem (Free Text: Admission Diagnosis/Problem Admission Diagnosis/Problem TIA, Transient ischemic attack Functional Status: Reports: Pain Controlled - Review of Systems General: Reports: No Symptoms HEENT: Reports: No Symptoms Pulmonary: Reports: No Symptoms Cardiovascular: Reports: No Symptoms Gastrointestinal: Reports: No Symptoms Genitourinary: Reports: No Symptoms Musculoskeletal: Reports: Neck Pain Skin: Reports: No Symptoms Neurological: Reports: No Symptoms Psychiatric: Reports: No Symptoms - Patient Data Vitals - Most Recent: Last Vital Signs Temp 36.1 C 03/31/19 08:00 Pulse 88 03/31/19 08:56 Resp 18 03/31/19 08:00 BP 150/88 H 03/31/19 08:59 Pulse Ox 100 03/31/19 08:00 Weight - Most Recent: 62.794 kg I&O - Last 24 hours: Intake & Output 03/30/19 03/31/19 03/31/19 22:59 06:59 14:59 Intake Total 600 Output Total 900 Balance -300 Lab Results - Last 24 hrs: Laboratory Results - last 24 hr 03/30/19 03/30/19 03/30/19 Range/Units 16:45 16:45 16:45 WBC 6.05 (4.0-11.0) K/uL RBC 4.56 (4.30-5.90) M/uL Hgb 14.4 (12.0-16.0) g/dL Hct 42.4 (36.0-46.0) % MCV 93.0 (80.0-98.0) fL MCH 31.6 (27.0-32.0) pg MCHC 34.0 (31.0-37.0) g/dL RDW Std Deviation 45.0 (28.0-62.0) fl RDW Coeff of Malissa 13 (11.0-15.0) % Plt Count 231 (150-400) K/uL MPV 11.00 (7.40-12.00) fL Neut % (Auto) 73.4 (48.0-80.0) % Lymph % (Auto) 18.3 (16.0-40.0) % [place] % (Auto) 7.3 (0.0-15.0) % Eos % (Auto) 0.7 (0.0-7.0) % Baso % (Auto) 0.3 (0.0-1.5) % Neut # (Auto) 4.4 (1.4-5.7) K/uL Lymph # (Auto) 1.1 (0.6-2.4) K/uL [place] # (Auto) 0.4 (0.0-0.8) K/uL Eos # (Auto) 0.0 (0.0-0.7) K/uL Baso # (Auto) 0.0 (0.0-0.1) K/uL Nucleated RBC % 0.0 /100WBC Nucleated RBCs # 0 K/uL INR 0.96 APTT 24.9 (18.6-31.3) SEC Sodium 141 (136-145) mmol/L Potassium 3.8 (3.5-5.1) mmol/L Chloride 105 (98-107) mmol/L Carbon Dioxide 25.6 (21.0-32.0) mmol/L BUN 17 (7.0-18.0) mg/dL Creatinine 0.9 (0.6-1.0) mg/dL Est Cr Clr Drug Dosing 50.18 mL/min Estimated GFR (MDRD) > 60.0 ml/min Glucose 134 H (74-106) mg/dL Hemoglobin A1c (4.5-6.2) % Calcium 9.1 (8.5-10.1) mg/dL Total Bilirubin 0.6 (0.2-1.0) mg/dL AST 12 L (15-37) IU/L ALT 21 (14-63) IU/L Alkaline Phosphatase 97 (46-116) U/L Troponin I < 0.050 (0.000-0.056) ng/mL Total Protein 6.9 (6.4-8.2) g/dL Albumin 3.8 (3.4-5.0) g/dL Globulin 3.1 (2.6-4.0) g/dL Albumin/Globulin Ratio 1.2 (0.9-1.6) Triglycerides (0-200) mg/dL Cholesterol (50-200) mg/dL LDL Cholesterol, Calc (60-180) mg/dL VLDL Cholesterol (5-55) mg/dL HDL Cholesterol (40-60) mg/dL Cholesterol/HDL Ratio (3.3-6.0) TSH 3rd Generation 1.51 (0.36-3.74) uIU/mL 03/31/19 03/31/19 Range/Units 06:00 06:00 WBC (4.0-11.0) K/uL RBC (4.30-5.90) M/uL Hgb (12.0-16.0) g/dL Hct (36.0-46.0) % MCV (80.0-98.0) fL MCH (27.0-32.0) pg MCHC (31.0-37.0) g/dL RDW Std Deviation (28.0-62.0) fl RDW Coeff of Malissa (11.0-15.0) % Plt Count (150-400) K/uL MPV (7.40-12.00) fL Neut % (Auto) (48.0-80.0) % Lymph % (Auto) (16.0-40.0) % [place] % (Auto) (0.0-15.0) % Eos % (Auto) (0.0-7.0) % Baso % (Auto) (0.0-1.5) % Neut # (Auto) (1.4-5.7) K/uL Lymph # (Auto) (0.6-2.4) K/uL [place] # (Auto) (0.0-0.8) K/uL Eos # (Auto) (0.0-0.7) K/uL Baso # (Auto) (0.0-0.1) K/uL Nucleated RBC % /100WBC Nucleated RBCs # K/uL INR APTT (18.6-31.3) SEC Sodium 141 (136-145) mmol/L Potassium 3.3 L (3.5-5.1) mmol/L Chloride 106 (98-107) mmol/L Carbon Dioxide 28.9 (21.0-32.0) mmol/L BUN 12 (7.0-18.0) mg/dL Creatinine 0.9 (0.6-1.0) mg/dL Est Cr Clr Drug Dosing 50.18 mL/min Estimated GFR (MDRD) > 60.0 ml/min Glucose 110 H (74-106) mg/dL Hemoglobin A1c 5.5 (4.5-6.2) % Calcium 9.0 (8.5-10.1) mg/dL Total Bilirubin (0.2-1.0) mg/dL AST (15-37) IU/L ALT (14-63) IU/L Alkaline Phosphatase (46-116) U/L Troponin I (0.000-0.056) ng/mL Total Protein (6.4-8.2) g/dL Albumin (3.4-5.0) g/dL Globulin (2.6-4.0) g/dL Albumin/Globulin Ratio (0.9-1.6) Triglycerides 138 (0-200) mg/dL Cholesterol 217 H (50-200) mg/dL LDL Cholesterol, Calc 139 (60-180) mg/dL VLDL Cholesterol 27 (5-55) mg/dL HDL Cholesterol 50 (40-60) mg/dL Cholesterol/HDL Ratio 4.3 (3.3-6.0) TSH 3rd Generation (0.36-3.74) uIU/mL Med Orders - Current: Current Medications Acetaminophen (Tylenol) 650 mg PO Q4H PRN PRN Reason: Pain (Mild 1-3)/fever Enoxaparin Sodium (Lovenox) 40 mg SUBCUT Q24H [facility] Last Admin: 03/30/19 18:21 Dose: 40 mg Isosorbide Mononitrate (Imdur) 30 mg PO DAILY [facility] Last Admin: 03/31/19 08:59 Dose: 30 mg Metoprolol Succinate (Toprol Xl) 100 mg PO BID [facility] Last Admin: 03/31/19 08:56 Dose: 100 mg Nitroglycerin (Nitrostat) 0.4 mg SL Q5M PRN PRN Reason: Chest Pain Ondansetron HCl (Zofran Odt) 4 mg PO Q4H PRN PRN Reason: nausea, able to take PO Ramipril (Altace) 10 mg PO BID [facility] Last Admin: 03/31/19 08:59 Dose: 10 mg Sodium Chloride (Saline Flush) 10 ml FLUSH ASDIRECTED PRN PRN Reason: Keep Vein Open Sodium Chloride (Saline Flush) 2.5 ml FLUSH ASDIRECTED PRN PRN Reason: Keep Vein Open Sodium Chloride (Normal Saline) 10 ml IV ASDIRECTED PRN PRN Reason: IV Use Discontinued Medications Iopamidol (Isovue Multipack-370 (76%)) 100 ml IVPUSH ONETIME STA Stop: 03/30/19 19:27 Last Admin: 03/30/19 19:26 Dose: 100 ml Metoprolol Succinate (Toprol Xl) 100 mg PO DAILY [facility] Ramipril (Altace) 20 mg PO DAILY [facility] - Exam Quality Assessment: Denies: Supplemental Oxygen General: Reports: Alert, Oriented, Cooperative HEENT: Reports: Pupils Equal, Pupils Reactive, EOMI, Mucous Membr. Moist/[place] Neck: Reports: Supple, Trachea Midline Lungs: Reports: Clear to Auscultation, Normal Respiratory Effort Cardiovascular: Reports: Regular Rate, Regular Rhythm GI/Abdominal Exam: Normal Bowel Sounds, Soft, No Distention Back Exam: Reports: Normal Inspection, Full Range of Motion Extremities: Normal Inspection, No Pedal Edema Skin: Reports: Warm, Dry, Intact Neurological: Reports: No New Focal Deficit Psy/Mental Status: Reports: Alert, Normal Affect, Normal Mood
[2019-03-31 12:50] VITALS: BP 105/72
== END 2019-03-31 13:05 | disposition home or self-care (01) ==
LOC: MW.ED 16:17 → MW.MS 17:32
PROVIDERS: ADMIT Internal Medicine; ATTEND Internal Medicine
DX: R51 Headache (principal); J32.9 Chronic sinusitis, unspecified; I10 Essential (primary) hypertension; F41.9 Anxiety disorder, unspecified; M19.90 Unspecified osteoarthritis, unspecified site; Z87.891 Personal history of nicotine dependence; Z86.73 Personal history of transient ischemic attack (TIA), and cerebral infarction without residual deficits; Z79.899 Other long term (current) drug therapy; Z88.0 Allergy status to penicillin; Z88.8 Allergy status to other drugs, medicaments and biological substances; Z88.6 Allergy status to analgesic agent; Z88.4 Allergy status to anesthetic agent; Z91.040 Latex allergy status; Z88.5 Allergy status to narcotic agent; Z91.018 Allergy to other foods; Z98.890 Other specified postprocedural states
CPT/HCPCS: 36415; 70450; 70496; 70498; 80048; 80053; 80061; 83036; 84443; 84484; 85025; 85610; 85730; 93005; 96372; 97161; 99285; A9270; G0378; J1650; Q9967; 99284

== ENCOUNTER 2019-07-13 19:33 | Emergency (ER) | payer MEDICARE, OTHER ==
--- NOTE | 2019-07-13 19:49 | EDM.PDOC ---
ED HPI GENERAL MEDICAL PROBLEM - General Chief Complaint: ENT Problem Stated Complaint: JAW PAIN Time Seen by Provider: 07/13/19 19:47 Source of Information: Reports: Patient History Limitations: Reports: No Limitations - History of Present Illness INITIAL COMMENTS - FREE TEXT/NARRATIVE: HISTORY AND PHYSICAL: History of present illness: Patient is a 69-year-old female presents to the ED with complaint of jaw pain. She states she fell forward hitting the right side of her jaw 3 days ago. She denies loss of consciousness, headache, or neck pain. She states she has a stinging pain in the right side of her jaw and her jaw clicks and pops out of joint every time she opens it. She states she is on a blood thinner but can not recall what it is. Review of systems: As per history of present illness and below otherwise all systems reviewed and negative. Past medical history: As per history of present illness and as reviewed below otherwise noncontributory. Surgical history: As per history of present illness and as reviewed below otherwise noncontributory. Social history: No reported history of drug or alcohol abuse. Family history: As per history of present illness and as reviewed below otherwise noncontributory. Physical exam: General: Patient sitting comfortably in no acute distress and nontoxic appearing HEENT: Atraumatic, normocephalic, pupils reactive, negative for conjunctival pallor or scleral icterus, mucous membranes moist, throat clear, neck supple, nontender, trachea midline. No meningeal signs. Lungs: Clear to auscultation, breath sounds equal bilaterally, chest nontender. Heart: S1S2, regular, negative for clicks, rubs, or overt murmur. Abdomen: Soft, nondistended, nontender. Negative for masses or hepatosplenomegaly. Negative for costovertebral tenderness. No rigidity, rebound , guarding. Pelvis: Stable nontender. Genitourinary: Deferred. Rectal: Deferred. Extremities: Atraumatic, negative for cords or calf pain. Neurovascular unremarkable. Neuro: Awake, alert, oriented. Cranial nerves II through XII unremarkable. Cerebellum unremarkable. Motor and sensory unremarkable throughout. Exam nonfocal. Notes: Diagnostics: CT maxillofacial, cervical spine, head q/o contrast Therapeutics: [] Prescriptions: Impression: Jaw pain Plan: Soft foods as instructed Follow up with primary care provider Return to ED as needed as discussed Definitive disposition and diagnosis as appropriate pending reevaluation and review of above. right mandible Pain Score (Numeric/FACES): 6 - Related Data Allergies Allergy/AdvReac Type Severity Reaction Status Date / Time Penicillins Allergy Severe Hives Verified 07/13/19 19:41 acetaminophen Allergy Hives Verified 07/13/19 19:41 [From Darvocet-N] Anesthetics - Amide Type Allergy Hives Verified 07/13/19 19:41 Anesthetics - Corry Type- Allergy Hives Verified 07/13/19 19:41 Parabens aspirin Allergy Bleeding Verified 07/13/19 19:41 latex Allergy Hives Verified 07/13/19 19:41 nut - unspecified Allergy Anaphylactic Verified 07/13/19 19:41 Shock propoxyphene Allergy Hives Verified 07/13/19 19:41 [From Darvocet-N] tree nut [Pecans] Allergy Airway Verified 07/13/19 19:41 Tightness walnut Allergy Airway Verified 07/13/19 19:41 Tightness Home Meds: Home Meds Metoprolol Succinate 100 mg PO DAILY 06/30/17 [History] Ramipril [Altace] 20 mg PO DAILY 06/30/17 [History] Isosorbide Mononitrate [Isosorbide Mononitrate ER] 30 mg PO DAILY 02/11/18 [ History] Past Medical History HEENT History: Reports: Impaired Vision Cardiovascular History: Reports: Hypertension Respiratory History: Reports: None Gastrointestinal History: Reports: Diverticulosis Genitourinary History: Reports: Renal Calculus, Urinary Incontinence 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 Musculoskeletal History: Reports: Arthritis Neurological History: Reports: CVA Psychiatric History: Reports: None Endocrine/Metabolic History: Reports: Other (See Below) Other Endocrine/Metabolic History: 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 and has it controlled with diet Hematologic History: Reports: None Immunologic History: Reports: None Oncologic (Cancer) History: Reports: None Dermatologic History: Reports: None - Infectious Disease History Infectious Disease History: Reports: Chicken Pox, Measles - Past Surgical History HEENT Surgical History: Reports: Other (See Below) Female Surgical History: Reports: Hysterectomy, Kidney stone extraction, Lithotripsy/ESWL, Salpingo-Oophorectomy Neurological Surgical History: Reports: Lumbar Spine Musculoskeletal Surgical History: Reports: Other (See Below) Social & Family History - Family History Family Medical History: Noncontributory - Caffeine Use Caffeine Use: Reports: Coffee Caffeine Use Comment: 1-2 cups per day - Living Situation & Occupation Living situation: Reports: , with Spouse Occupation: Retired ED ROS ENT - Review of Systems Review Of Systems: ROS reveals no pertinent complaints other than HPI. ED EXAM, ENT - Physical Exam Exam: See Below (see dictation) Course - Vital Signs Last Recorded V/S: Last Vital Signs Temp 98.1 F 07/13/19 19:33 Pulse 86 07/13/19 19:33 Resp 18 07/13/19 19:33 BP 131/86 07/13/19 19:33 Pulse Ox 96 07/13/19 19:33 Departure - Departure Time of Disposition: 21:04 Disposition: Home, Self-Care 01 Condition: Good Clinical Impression: Jaw pain - Discharge Information Referrals: PCP,None [Primary Care Provider] - Forms: ED Department Discharge Additional Instructions: The following information is given to patients seen in the emergency department who are being discharged to home. This information is to outline your options for follow-up care. We provide all patients seen in our emergency department with a follow-up referral. The need for follow-up, as well as the timing and circumstances, are variable depending upon the specifics of your emergency department visit. If you don't have a primary care physician on staff, we will provide you with a referral. We always advise you to contact your personal physician following an emergency department visit to inform them of the circumstance of the visit and for follow-up with them and/or the need for any referrals to a consulting specialist. The emergency department will also refer you to a specialist when appropriate. This referral assures that you have the opportunity for follow-up care with a specialist. All of these measure are taken in an effort to provide you with optimal care, which includes your follow-up. Under all circumstances we always encourage you to contact your private physician who remains a resource for coordinating your care. When calling for follow-up care, please make the office aware that this follow-up is from your recent emergency room visit. If for any reason you are refused follow-up, please contact the [facility] Emergency Department at and asked to speak to the emergency department charge nurse. [facility] [address] [place] [address] [facility] [address] [place] [id number] Soft foods as instructed Follow up with primary care provider Return to ED as needed as discussed
--- NOTE | 2019-07-13 20:52 | CT ---
INDICATION: Fall, injury and pain. TECHNIQUE: CT head without contrast. COMPARISON: None. FINDINGS: CSF spaces: Within normal limits for age. Brain parenchyma and extra-axial spaces: The sheets-white differentiation is normal. No sign of mass, hemorrhage, or midline shift. No extra-axial fluid collection. Skull base and calvarium: The visualized paranasal sinuses and mastoid air cells demonstrate no acute or significant findings. The visualized orbits are grossly unremarkable. No skull fractures. IMPRESSION: Unremarkable noncontrast head CT. Please note that all CT scans at this facility use dose modulation, iterative reconstruction, and/or weight-based dosing when appropriate to reduce radiation dose to as low as reasonably achievable. Dictated by Jeremías Worthy MD @ Jul 13 2019 8:45PM Signed by Dr. Jeremías Worthy @ Jul 13 2019 8:50PM
--- NOTE | 2019-07-13 20:56 | CT ---
INDICATION: Fall, injury and pain TECHNIQUE: CT cervical spine without contrast. COMPARISON: None FINDINGS: Vertebrae: Alignment is normal. There are no fractures or suspicious bony lesions. Discs and facet joints: Disc spaces are preserved.. Mild multilevel facet joint spondylosis. Extraspinal findings: Paraspinous soft tissues are unremarkable. IMPRESSION: 1. No sign of acute injury. 2. Multilevel degenerative facet joint spondylosis. Please note that all CT scans at this facility use dose modulation, iterative reconstruction, and/or weight-based dosing when appropriate to reduce radiation dose to as low as reasonably achievable. Dictated by Jeremías Worthy MD @ Jul 13 2019 8:50PM Signed by Dr. Jeremías Worthy @ Jul 13 2019 8:55PM
--- NOTE | 2019-07-13 21:00 | CT ---
INDICATION: Fall, injury and pain. TECHNIQUE: CT maxillofacial without contrast. COMPARISON: None FINDINGS: Facial bones: No fractures or bone lesions. Specifically the nasal bones, temporomandibular joints, maxilla and mandible appear intact. Orbits and globes: Unremarkable. Globes are intact. No sign of intraorbital hemorrhage or emphysema. Sinuses: No acute or significant findings. Soft tissues: Unremarkable. IMPRESSION: Unremarkable facial CT. No sign of acute injury. Please note that all CT scans at this facility use dose modulation, iterative reconstruction, and/or weight-based dosing when appropriate to reduce radiation dose to as low as reasonably achievable. Dictated by Jeremías Worthy MD @ Jul 13 2019 8:55PM Signed by Dr. Jeremías Worthy @ Jul 13 2019 8:59PM
[2019-07-13 21:21] VITALS: BP 142/76; PULSE 69
== END 2019-07-13 21:15 | disposition home or self-care (01) ==
LOC: MW.ED 19:33
DX: R68.84 Jaw pain (principal); I10 Essential (primary) hypertension; Z79.899 Other long term (current) drug therapy; Z86.73 Personal history of transient ischemic attack (TIA), and cerebral infarction without residual deficits; Z88.0 Allergy status to penicillin; Z88.6 Allergy status to analgesic agent; Z91.040 Latex allergy status; Z88.4 Allergy status to anesthetic agent; Z91.010 Allergy to peanuts; Z91.018 Allergy to other foods; Z88.8 Allergy status to other drugs, medicaments and biological substances; Z88.5 Allergy status to narcotic agent; W19.XXXA Unspecified fall, initial encounter
CPT/HCPCS: 70450; 70450-26; 70486; 70486-26; 72125; 72125-26; 99283-25

== ENCOUNTER 2020-09-07 06:42 | Emergency (ER) | payer MEDICARE, OTHER ==
--- NOTE | 2020-09-07 07:22 | EDM.PDOC ---
ED HPI GENERAL MEDICAL PROBLEM - General Chief Complaint: ENT Problem Stated Complaint: PER PT. SHE FEELS LIKE SOMETHING IS IN HER THROAT Time Seen by Provider: 09/07/20 07:09 Source of Information: Reports: Patient History Limitations: Reports: No Limitations - History of Present Illness INITIAL COMMENTS - FREE TEXT/NARRATIVE: Patient is a 70-year-old female who presents today for sore throat. Patient states about 3 months ago while at a restaurant she saw the person packing her food stable in the bags and she believes she may have swallowed a staple during dinner tonight. Patient has had a recurrent irritation in her throat and she has thought she had a stable air. Patient still able tolerate p.o. has no nausea vomiting unable to breathe clearly. Patient denies any other complaints. Throat Pain Score (Numeric/FACES): 4 - Related Data Allergies Allergy/AdvReac Type Severity Reaction Status Date / Time Penicillins Allergy Severe Hives Verified 09/07/20 07:11 acetaminophen Allergy Hives Verified 09/07/20 07:11 [From Darvocet-N] Anesthetics - Amide Type - Allergy Hives Verified 09/07/20 07:11 Select A [Anesthetics - Amide Type] Anesthetics - Corry Type- Allergy Hives Verified 09/07/20 07:11 Parabens aspirin Allergy Bleeding Verified 09/07/20 07:11 latex Allergy Hives Verified 09/07/20 07:11 nut - unspecified Allergy Anaphylactic Verified 09/07/20 07:11 Shock propoxyphene Allergy Hives Verified 09/07/20 07:11 [From Darvocet-N] tree nut [Pecans] Allergy Airway Verified 09/07/20 07:11 Tightness walnut Allergy Airway Verified 09/07/20 07:11 Tightness Home Meds: Home Meds Metoprolol Succinate 100 mg PO DAILY 06/30/17 [History] Ramipril [Altace] 20 mg PO DAILY 06/30/17 [History] Isosorbide Mononitrate [Isosorbide Mononitrate ER] 30 mg PO DAILY 02/11/18 [History] Past Medical History HEENT History: Reports: Impaired Vision Cardiovascular History: Reports: Hypertension, Other (See Below) Other Cardiovascular History: "leaky heart valve" Respiratory History: Reports: None Gastrointestinal History: Reports: Diverticulosis Genitourinary History: Reports: Renal Calculus, Urinary Incontinence 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 CONDITIONER History: Reports: Musculoskeletal History: Reports: Arthritis Neurological History: Reports: CVA Psychiatric History: Reports: None Endocrine/Metabolic History: Reports: Other (See Below) Other Endocrine/Metabolic History: 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 and has it controlled with diet Hematologic History: Reports: None Immunologic History: Reports: None Oncologic (Cancer) History: Reports: None Dermatologic History: Reports: None - Infectious Disease History Infectious Disease History: Reports: Chicken Pox, Measles - Past Surgical History Head Surgeries/Procedures: Reports: None HEENT Surgical History: Reports: Other (See Below) Cardiovascular Surgical History: Reports: None Respiratory Surgical History: Reports: None GI Surgical History: Reports: None Female Surgical History: Reports: Hysterectomy, Kidney stone extraction, Lithotripsy/ESWL, Salpingo-Oophorectomy Endocrine Surgical History: Reports: None Neurological Surgical History: Reports: Lumbar Spine Musculoskeletal Surgical History: Reports: Other (See Below) Other Musculoskeletal Surgeries/Procedures:: back surgery, hand and feet surgery Oncologic Surgical History: Reports: None Dermatological Surgical History: Reports: None Social & Family History - Family History Family Medical History: No Pertinent Family History - Tobacco Use Tobacco Use Status *Q: Never Tobacco User Second Hand Smoke Exposure: No - Caffeine Use Caffeine Use: Reports: Coffee Caffeine Use Comment: 1-2 cups per day - Recreational Drug Use Recreational Drug Use: No - Living Situation & Occupation Living situation: Reports: , with Spouse Occupation: Retired ED ROS GENERAL - Review of Systems Review Of Systems: See Below Constitutional: Reports: No Symptoms HEENT: Reports: Throat Pain Respiratory: Reports: No Symptoms Cardiovascular: Reports: No Symptoms Endocrine: Reports: No Symptoms GI/Abdominal: Reports: No Symptoms : Reports: No Symptoms Musculoskeletal: Reports: No Symptoms Skin: Reports: No Symptoms Neurological: Reports: No Symptoms Psychiatric: Reports: No Symptoms Hematologic/Lymphatic: Reports: No Symptoms Immunologic: Reports: No Symptoms ED EXAM, GENERAL - Physical Exam Exam: See Below Exam Limited By: No Limitations General Appearance: Alert, No Apparent Distress Throat/Mouth: Other (No swelling or tonsillar exudate) Neck: Supple. No: Lymphadenopathy (L), Lymphadenopathy (R) Respiratory/Chest: No Respiratory Distress Cardiovascular: Regular Rate, Rhythm GI/Abdominal: Normal Bowel Sounds, Soft, Non-Tender Neurological: Alert, Oriented, Normal Cognition, Normal Gait Course - Vital Signs Last Recorded V/S: Last Vital Signs Temp 97.5 F 09/07/20 07:05 Pulse 62 09/07/20 07:05 Resp 18 09/07/20 07:05 BP 149/99 H 09/07/20 07:05 Pulse Ox 97 09/07/20 07:05 Departure - Departure Time of Disposition: 08:19 Disposition: Home, Self-Care 01 Condition: Good Clinical Impression: Foreign body sensation in throat - Discharge Information *PRESCRIPTION DRUG MONITORING PROGRAM REVIEWED*: Not Applicable *COPY OF PRESCRIPTION DRUG MONITORING REPORT IN PATIENT BELKYS: Not Applicable Instructions: Swallowed Foreign Body, Adult, [id number] Referrals: Jory Montilla MD [Primary Care Provider] - Forms: ED Department Discharge Additional Instructions: The following information is given to patients seen in the emergency department who are being discharged to home. This information is to outline your options for follow-up care. We provide all patients seen in our emergency department with a follow-up referral. The need for follow-up, as well as the timing and circumstances, are variable depending upon the specifics of your emergency department visit. If you don't have a primary care physician on staff, we will provide you with a referral. We always advise you to contact your personal physician following an emergency department visit to inform them of the circumstance of the visit and for follow-up with them and/or the need for any referrals to a consulting specialist. The emergency department will also refer you to a specialist when appropriate. This referral assures that you have the opportunity for follow-up care with a specialist. All of these measure are taken in an effort to provide you with optimal care, which includes your follow-up. Under all circumstances we always encourage you to contact your private physi shane who remains a resource for coordinating your care. When calling for follow- up care, please make the office aware that this follow-up is from your recent emergency room visit. If for any reason you are refused follow-up, please contact the [facility] Emergency Department at and asked to speak to the emergency department charge nurse. Please follow up with your primary care physician. If you do not have a primary care physician, see below: [facility] [address] [place] [address] [phone] [facility] [address] [place] [address] We completed an x-ray today did not show any signs of foreign body pain in your throat. If you start the sensation you can follow-up with ENT. If you have any difficulty breathing or swallowing please return to the ED. Sepsis Event Note (ED) - Evaluation Sepsis Screening Result: No Definite Risk - Focused Exam Vital Signs: Vital Signs Temp Pulse Resp BP Pulse Ox 09/07/20 07:05 97.5 F 62 18 149/99 H 97 - Assessment/Plan Plan: Patient is a 62-year-old female who presents today for possible foreign body stuck in her throat. Patient believes that it occurred 3 months ago. Will obtain x-ray and reassess.
--- NOTE | 2020-09-07 08:15 | CR ---
HISTORY: Possible swallowed foreign body. TECHNIQUE: Two views of the soft tissues of the neck. COMPARISON: CT cervical spine 07/13/2019. FINDINGS: The cervical vertebral body height and intervertebral disc height are maintained. There are mild degenerative changes of the cervical spine. There is no acute cervical fracture. - No abnormal thickening of the epiglottis. No prevertebral soft tissue swelling. No radiopaque foreign body seen along the included portion of the airway or upper esophagus. - Lung apices appear clear. IMPRESSION: 1. No radiopaque foreign body along the course of the included airway or proximal esophagus. 2. No prevertebral soft tissue swelling or abnormal thickening of the epiglottis. Dictated by Tee Spivey MD @ 09/07/2020 8:14:21 AM Dictated by: Tee Spivey MD @ 09/07/2020 08:14:26 (Electronically Signed)
[2020-09-07 08:58] VITALS: BP 146/83; PULSE 58
== END 2020-09-07 08:32 | disposition home or self-care (01) ==
LOC: MW.ED 06:42
DX: R09.89 Other specified symptoms and signs involving the circulatory and respiratory systems (principal); I10 Essential (primary) hypertension; Z88.0 Allergy status to penicillin; Z88.6 Allergy status to analgesic agent; Z88.4 Allergy status to anesthetic agent; Z91.040 Latex allergy status; Z88.8 Allergy status to other drugs, medicaments and biological substances; Z91.018 Allergy to other foods; Z79.899 Other long term (current) drug therapy
CPT/HCPCS: 70360; 70360-26; 99283; 99283-25

== ENCOUNTER 2023-03-24 05:55 | Emergency (ER) | payer MEDICARE ==
[2023-03-24] MEDS ORDERED: Aluminum Hydroxide/Magnesium Hydroxide/Simethicone XS Susp 30 ML Cup PO ONE (06:13)
[2023-03-24 06:17] LABS: BASOPHILS PERCENT AUTO 0.7 % (0.0-1.5); EOSINOPHILS ABSOLUTE AUTO 0.1 K/uL (0.0-0.7); EOSINOPHILS PERCENT AUTO 1.8 % (0.0-7.0); HEMATOCRIT 42.4 % (36.0-46.0); HEMOGLOBIN 14.3 g/dL (12.0-16.0); LYMPHOCYTES ABSOLUTE AUTO 1.8 K/uL (0.6-2.4); LYMPHOCYTES PERCENT AUTO 31.5 % (16.0-40.0); MEAN CORPUSCULAR HEMOGLOBIN 31.4 pg (27.0-32.0); MEAN CORPUSCULAR HGB CONC 33.7 g/dL (31.0-37.0); MONOCYTES ABSOLUTE AUTO 0.5 K/uL (0.0-0.8); MONOCYTES PERCENT AUTO 9.4 % (0.0-15.0); NEUTROPHILS ABSOLUTE AUTO 3.2 K/uL (1.4-5.7); NEUTROPHILS PERCENT AUTO 56.6 % (48.0-80.0); NRBC ABSOLUTE 0 K/uL; PLATELET COUNT,PLT 244 K/uL (150-400); RED BLOOD CELL COUNT 4.56 M/uL (4.30-5.90); WHITE BLOOD CELL COUNT,WBC 5.65 K/uL (4.0-11.0)
[2023-03-24 06:32] LABS: PTT,PARTIAL THROMBOPLSTIN TIME 27.2 SEC (23.9-30.7)
[2023-03-24 07:03] LABS: A/G RATIO 1.3 (0.9-1.6); ALBUMIN 3.8 g/dL (3.4-5.0); BILIRUBIN TOTAL 0.9 mg/dL (0.2-1.0); CALCIUM 8.5 mg/dL (8.5-10.1); EST CRCL DRUG DOSING (CG) 40.81 mL/min; POTASSIUM,K 3.5 mmol/L (3.5-5.1); PROTEIN TOTAL,TP 6.7 g/dL (6.4-8.2)
[2023-03-24 08:11] VITALS: BP 148/86; PULSE 53
== END 2023-03-24 07:55 | disposition home or self-care (01) ==
LOC: MW.ED 05:55
DX: R07.89 Other chest pain (principal); I10 Essential (primary) hypertension; Z88.8 Allergy status to other drugs, medicaments and biological substances; Z91.040 Latex allergy status; Z91.018 Allergy to other foods; Z88.0 Allergy status to penicillin; Z88.6 Allergy status to analgesic agent; Z88.4 Allergy status to anesthetic agent
CPT/HCPCS: 36415; 71045; 80053; 84484; 85025; 85610; 85730; 93005; 99285; A9270; 93010; 99283